=== PATIENT | female | born 1995 | race Caucasian/White ===

== ENCOUNTER 2025-04-21 19:46 | Emergency (ER) | payer SELFPAY ==
[~2025-04-21] VITALS: Ht 157.4 cm; Wt 81.6 kg
[2025-04-21] MEDS ORDERED: METHOCARBAMOL 500 MG TAB PO ONE (20:05)
[2025-04-21] MEDS ORDERED: Acetaminophen/Hydrocodone 5 MG/325 MG TABLET PO ONE (20:05)
[2025-04-21 20:10] VITALS: BP 133/87
[2025-04-21] MEDS ORDERED: METHOCARBAMOL500 M1 PO (20:10)
[2025-04-21] MEDS ORDERED: PREDNISONE50 MG PO (20:10)
== END 2025-04-21 20:41 | disposition home or self-care (01) ==
LOC: ED 19:46
DX: S39.012A Strain of muscle, fascia and tendon of lower back, initial encounter (principal); X50.0XXA Overexertion from strenuous movement or load, initial encounter; Y93.89 Activity, other specified; Y92.89 Other specified places as the place of occurrence of the external cause; Y99.8 Other external cause status